=== PATIENT | female | born 2000 | race Hispanic/Latino ===

== ENCOUNTER 2018-09-17 19:46 | Emergency (ER) | payer SELFPAY ==
[~2018-09-17] VITALS: Ht 160 cm; Wt 61.4 kg
[2018-09-17] MEDS ORDERED: METHOCARBAMOL 750 MG TAB PO ONE (21:00)
[2018-09-17] MEDS ORDERED: IBUPROFEN 600 MG TAB PO ONE (21:00)
[2018-09-17] MEDS ORDERED: LIDO5TD TOP (21:42)
[2018-09-17] MEDS ORDERED: ROBA500T PO (21:42)
[2018-09-17] MEDS ORDERED: NAPR-50 PO (21:42)
[2018-09-17 21:48] VITALS: BP 108/59
--- NOTE | 2018-09-18 10:31 | REP ---
Thoracic spine three views: There are no comparisons. Vertebral body heights, interspacing alignment are normal. Mineralization is normal. Pedicles are unremarkable. There are no compression deformities or listhesis. Impression: Negative plain film study of the thoracic spine. Electronically Signed by Omid Franco MD 09/18/2018 08:35 A
== END 2018-09-17 21:55 | disposition home or self-care (01) ==
LOC: M ED 19:46
DX: M54.6 Pain in thoracic spine (principal); M62.830 Muscle spasm of back